=== PATIENT | female | born 1975 | race Caucasian/White ===

== ENCOUNTER 2019-02-27 18:19 | Emergency (ER) | payer MEDICAID, OTHER ==
[~2019-02-27] VITALS: Ht 170.2 cm; Wt 89.9 kg
[2019-02-27 19:07] VITALS: BP 138/74
== END 2019-02-27 19:08 | disposition home or self-care (01) ==
LOC: ED 19:00
DX: M79.642 Pain in left hand (principal); M79.641 Pain in right hand
CPT/HCPCS: 99281